=== PATIENT | female | born 1960 | race Caucasian/White ===

== ENCOUNTER 2018-09-26 10:14 | Observation (INO) ==
--- NOTE | 2018-09-25 23:34 | MH ---
cc: Luis Call MD DATE OF ADMISSION: 09/26/2018 DATE OF ADMISSION: 09/26/2018 ADMITTING DIAGNOSIS: Postmenopausal bleeding with uterine fibroids and simple hyperplasia with pelvic pain. HISTORY OF PRESENT ILLNESS: The patient is a 57-year-old white female, para 2-0-0-2. Developed low back pain, bloating, menstrual type bleeding in 03/2018. Her pelvic ultrasound showed fibroids, retroversion with a simple cyst on the left ovary. She underwent outpatient hysteroscopy, D and C on 05/24/2018 which returned with a benign smooth muscle simple hyperplasia without atypia. She was tried on Provera suppression but has continued with the bleeding and is now admitted for hysterectomy. PAST SURGICAL HISTORY: Left breast biopsy in 1988, benign. MEDICATIONS: Progesterone. ALLERGIES: NONE. MEDICAL ILLNESS: History of elevated LFTs in 2016 that resolved felt to be due to autoimmune hepatitis. OBSTETRIC HISTORY: Two vaginal deliveries. SOCIAL HISTORY: She works at the [employer]. She is 36 years. Alcohol: None. Tobacco: None. Drugs: None. FAMILY HISTORY: Noncontributory. REVIEW OF SYSTEMS: Negative. PHYSICAL EXAMINATION: GENERAL: She is a well-nourished, well-developed white female. VITAL SIGNS: Stable. HEENT: Normal. CHEST: Clear. HEART: Regular rate. BREASTS: Symmetrical. ABDOMEN: Benign. PELVIC: Vagina is normal. Cervix normal. Uterus is about 12-week size, retroverted. No adnexal masses. As above, she is now admitted for laparoscopy. PLAN: LASH/BSO, possible VENESSA/BSO. While in the office the risks and benefits and complications accepted. Explained if larger incision needed, a longer recovery. The patient would like to proceed. Luis Call MD [facility]/ , 09:40 PM , 09:46 PM
[2018-09-26] MEDS ORDERED: ceFAZolin 2 GM Premix Inj 2 GM/50 ML PIGGYBACK IV.SIG ONE ×2 (11:32→12:00)
[2018-09-26] MEDS ORDERED: Chlorhexidine Gluconate 2% 1 Pack (2 Cloths) TOPICAL ONE (11:45)
[2018-09-26] MEDS ORDERED: Metoprolol Tartrate 25 MG Tablet PO ONE (11:45)
[2018-09-26] MEDS ORDERED: Sodium Chlor 0.9% Inj 500 ML IV.CONT ONE (11:45)
[2018-09-26] MEDS ORDERED: Bupivacaine PF 0.25% Inj 30 ML Vial ONE (14:14)
[2018-09-26] MEDS ORDERED: Bupivacaine Liposomal PF 1.3% Inj 20 ML Vial ONE (14:14)
[2018-09-26] MEDS ORDERED: HYDROmorphone PF Inj 1 MG/ML Ampul IV.PUSH PRN (15:09)
[2018-09-26] MEDS ORDERED: fentaNYL Citrate Inj 100 MCG/2 ML Ampul ONE (15:50)
[2018-09-26] MEDS ORDERED: *morphine SULFATE 4 MG/ML PERIprocedure ONLY ONE (16:02)
--- NOTE | 2018-09-26 16:03 | MP ---
cc: Luis Call MD DATE OF OPERATION: 09/26/2018 PREOPERATIVE DIAGNOSIS: 1. Postmenopausal bleeding. 1. Uterine fibroids. 3. Simple hyperplasia. 4. Dysmenorrhea. PROCEDURE PERFORMED: Lash, bilateral salpingo-oophorectomy. ANESTHESIA: General, ET. SURGEON: Luis Call MD TOOL AND DIE ENGINEER: oRse Carmona ESTIMATED BLOOD LOSS: 100 mL FLUIDS: One liter crystalloid. OBJECTIVE FINDINGS: Following induction of adequate general endotracheal anesthesia, the patient was prepped and draped supine on the operating table in dorsal lithotomy position in the usual sterile fashion, with the bladder being drained via Diaz catheterization. The abdomen was opened through a 3 cm curving infraumbilical incision using a knife to cut down through the skin to the fascia. The fascia opened transversely. Rectus muscle split in the midline and the peritoneum entered bluntly with finger dissection. The mini GelPort was placed. Laparoscope inserted. A 5 port placed in left lower quadrant and AirSeal in the right lower quadrant. The uterus was about 12-week size with multiple fibroids, normal ovaries, tubes with good interruption with the old Falope rings. Cul-de-sacs were clear. Liver edge was normal. Working first on the left, my scalpel was used to take the left ovarian vessels, left round ligament, left broad ligament, left side of the bladder flap and left uterine vessels, the same on the right. My scalpel was now used to amputate the fundus from the cervix. A pouch inserted and the uterus, tubes, and ovaries were extracted through the pouch and through the GelPort site. Irrigation performed. One area of bleeding on the right side of the cervix was controlled with the Harmonic scalpel. The one on the left required a 2-0 Vicryl Quill stitch. Each corner of the cervix was then coated with Surgiflo and the entire operative field coated with either Evicel after low pressure test revealed no bleeding. Both ureters showed good peristalsis. The scope was now removed. GelPort removed. The GelPort wound was closed with a running 2-0 Vicryl for peritoneum. A running locking stitch of 0 Vicryl caught in the middle and tied for fascia, 3-0 running Vicryl for subcutaneous, and 3-0 Monocryl subcuticular for skin. The scope was now reinserted through the lower port sites, and used to inspect the GelPort site and it was intact with no entrapped tissue. No bleeding. Pelvis inspected. No bleeding. The scope was now removed, gas allowed to escape. The small ports were removed and sutured with 3-0 Monocryl subcuticular. Dermabond applied. All counts were correct. The patient will now receive a TAP block and go to the recovery room. MD JULIANA Maguire/ct , 03:16 PM , 03:24 PM
[2018-09-26] MEDS ORDERED: Zolpidem Tartrate 5 MG Tablet PO PRN (21:00)
[2018-09-26] MEDS: Docusate Sodium 100 MG Capsule PO SCH (21:07)
[2018-09-26] MEDS: Ketorolac Inj 30 MG/ML (IVP) Vial IV.PUSH SCH (21:50)
[2018-09-26 23:36] LABS: Hematocrit 39.7 % (35.0-46.0); Hemoglobin 13.4 gm/dL (11.6-15.3); Mean Corpuscular HGB Conc 33.8 % (32.0-36.0); Mean Corpuscular Hemoglobin 30.4 pg (27.0-34.0); Mean Corpuscular Volume 89.9 fL (80.0-100.0); Mean Platelet Volume 8.5 fL (7.0-11.0); Platelet Count 239 th/mm3 (150-450); Red Blood Count 4.42 mil/mm3 (4.00-5.30); Red Cell Distribution Width 12.7 % (11.6-17.2); White Blood Count 11.7 th/mm3 (4.0-11.0)
[2018-09-27] MEDS: Ketorolac Inj 30 MG/ML (IVP) Vial IV.PUSH SCH ×2 (03:15→09:14)
[2018-09-27 05:42] LABS: Baso % (Auto) 0.1 % (0.0-2.0); Hematocrit 35.4 % (35.0-46.0); Hemoglobin 12.2 gm/dL (11.6-15.3); Lymph # (Auto) 0.9 th/mm3 (1.0-4.8); Lymph % (Auto) 7.7 % (9.0-44.0); Mean Corpuscular HGB Conc 34.6 % (32.0-36.0); Mean Corpuscular Hemoglobin 30.8 pg (27.0-34.0); Mean Corpuscular Volume 89.1 fL (80.0-100.0); Mean Platelet Volume 8.5 fL (7.0-11.0); Mono # (Auto) 1.3 th/mm3 (0.0-0.9); Mono % (Auto) 10.8 % (0.0-8.0); Neut % (Auto) 81.4 % (16.0-70.0); Platelet Count 231 th/mm3 (150-450); Red Blood Count 3.98 mil/mm3 (4.00-5.30); Red Cell Distribution Width 12.6 % (11.6-17.2); White Blood Count 12.2 th/mm3 (4.0-11.0)
[2018-09-27 06:07] LABS: Calcium 8.6 mg/dL (8.5-10.1); Carbon Dioxide 25.1 meq/L (21.0-32.0); Potassium 4.1 meq/L (3.5-5.1)
[2018-09-27] MEDS: Docusate Sodium 100 MG Capsule PO SCH (09:15)
== END 2018-09-27 13:51 | disposition home or self-care (01) ==
LOC: H1EA 10:14 → HOR 10:14
PROVIDERS: ADMIT Obstetrics & Gynecology; ATTEND Obstetrics & Gynecology
PROC: LAPLASH (ICD-10-PCS; 2018-09-26 13:29)